=== PATIENT | male | born 1980 | race Two or more races ===

== ENCOUNTER 2019-05-10 19:47 | Emergency (ER) | payer MEDICAID, OTHER ==
[~2019-05-10] VITALS: Ht 182.9 cm; Wt 124.0 kg
[2019-05-10] MEDS ORDERED: KETOROLAC 60MG/2ML VIAL IM ONE (22:00)
[2019-05-11] MEDS ORDERED: ACETAMINOPHEN WITH CODEINE 300/30MG TABLET PO ONE
[2019-05-11 00:19] VITALS: BP 133/79
== END 2019-05-11 00:19 | disposition home or self-care (01) ==
LOC: ER 19:47
DX: M25.562 Pain in left knee (principal); R51 Headache; E11.9 Type 2 diabetes mellitus without complications; I10 Essential (primary) hypertension
CPT/HCPCS: 70450; 73030; 73090; 73130; 73560; 96372; 99284; J1885